=== PATIENT | male | born 1985 ===

== ENCOUNTER 2021-02-28 12:39 | Day surgery (SDC) | payer OTHER ==
[~2021-02-28] VITALS: Ht 172.7 cm; Wt 87.8 kg
[2021-02-28] MEDS ORDERED: Norco 5-325 Ta1 EACH (13:19)
--- NOTE | 2021-02-28 15:16 | NUR ---
02/28/21 1516 Marito Palafox BUPIVACAINE 0.5% 150 MG MIXED W/ EPI 0.15MG PER ORDER TO CONSTITUTE BUPIVACAINE 0.5% 1:200,000 FOR INJECTION AT [facility] BY DR SOLORIO FOR PAIN CONTROL. 30 MLS OF THIS INJECTED AT [facility].
--- NOTE | 2021-02-28 16:33 | NUR ---
02/28/21 1638 TERRA LYLES SITTING IN RECLINER. DRINKING AND EATING. PAIN STILL 11/11. WILL GIVE PO PAIN MEDICATION WELL.
== END 2021-02-28 17:10 | disposition home or self-care (01) ==
LOC: ORSCSDS 12:39
PROVIDERS: Podiatrist Foot & Ankle Surgery
PROC: 0QSJ04Z Reposition Right Fibula with Internal Fixation Device, Open Approach (ICD-10-PCS; principal; 2021-02-28 14:15)
DX: S82.831A Other fracture of upper and lower end of right fibula, initial encounter for closed fracture (principal); F17.210 Nicotine dependence, cigarettes, uncomplicated
CPT/HCPCS: A9270; C1713; J0171; J0690; J1100; J1885; J2250; J2405; J2704; J3010; J7120